=== PATIENT | female | born 1950 | race Two or more races ===

== ENCOUNTER 2019-01-19 05:40 | Day surgery (SDC) | payer OTHER ==
[~2019-01-19 05:40] MED LIST: COZAAR25 MG PO; JANUMET 50-1,01 EACH PO; JARDIANCE25 MG PO
[2019-01-19] MEDS ORDERED: PERCOCET 5-3251 EACH PO (09:29)
[2019-01-19] MEDS ORDERED: KETO10TA2 PO (09:29)
== END 2019-01-19 12:20 | disposition home or self-care (01) ==
LOC: CIR.AMB 05:40
DX: K64.8 Other hemorrhoids (principal)